=== PATIENT | female | born 1985 | race Caucasian/White ===

== ENCOUNTER 2016-12-16 21:01 | Emergency (ER) | payer OTHER ==
--- NOTE | 2016-12-16 23:34 | DIAGNOSTIC IMAGING REPORT ---
PROCEDURE: XR CHEST 2 VIEW INDICATION: CHEST PAIN TECHNIQUE: PA and lateral views. COMPARISON: None. FINDINGS: Allowing for suboptimal inspiration, lungs are clear. Heart and mediastinum are normal. Thorax is normal. IMPRESSION: 1. Negative chest.
--- NOTE | 2016-12-17 00:48 | ED CLINICAL REPORT ---
Clinical Report - Physicians/Mid Levels [facility] [address] [place] [place] [address] 12/16/2016 21:02 Patient: SID SAPP Time Seen: 22:30 Dec 16 2016. Arrived- By private vehicle. Historian- patient. CPT: ER phys charges level 4 (#[id number]). HISTORY OF PRESENT ILLNESS Chief Complaint: ABDOMINAL PAIN. At its maximum, severity described as 9 / 10. When seen in the E.D., severity described as 9 / 10. Modifying factors. Not worsened by anything. Not relieved by anything. It is described as "pain" and cramping and it is described as located in the epigastric area and radiating to the upper back. This started today patient had acute onset of epigastric pain 30-60 minutes after eating sol[place] islander fries today. This came on at 1500. Has a history of severe reflux as well. Is on daily medication for reflux. Has never had pain like this before. Her pain is epigastric and radiates to the right upper back area. Pain is crampy and a 9 out of 10. Been no fever nausea vomiting diarrhea constipation or prior abdominal surgeries. Patient is diabetic. No nausea, loss of appetite, vomiting or diarrhea. Similar symptoms previously: Milder. Diagnosis: (reflux). Recent medical care: Not recently seen/assessed. REVIEW OF SYSTEMS No constipation, black stools, hematemesis, difficulty with urination or pain with urination. No urinary frequency, fever, sore throat, chest pain or difficulty breathing. No cough, joint pain, skin rash or chills. Denies current . The patient has had back pain. All systems otherwise negative, except as recorded above. PAST HISTORY Hypertension. Diabetes Mellitus. - ADDITIONAL SURGERIES: Adenoidectomy. Tonsillectomy. Uvela. No history of peptic ulcer. No history of gallstones. Has not had urinary calculi. Severe gastroesophageal reflux. Medications: Januvia Oral. Lisinopril Oral. Omeprazole Oral. MetFORMIN HCl Oral. Allergies: None. SOCIAL HISTORY Heavy tobacco smoker (cigarette)- less than 1 pack per day. Alcohol use. No drug use. ADDITIONAL NOTES The nursing notes have been reviewed. PHYSICAL EXAM Vital Signs: 12/16/2016 21:18 BP: 180/107. HR: 83. O2 saturation: 97%. Temp: 97.8 F. Pain level now: 03/10. Appearance: Alert. Anxious. Appears to be in pain. Patient in moderate distress. Eyes: Eyes normal inspection. ENT: Pharynx normal. Neck: Normal inspection. CVS: Normal heart rate and rhythm. Heart sounds normal. Pulses normal. Respiratory: No respiratory distress. Breath sounds normal. Chest nontender. Abdomen: Soft. Moderate tenderness in the epigastric area with guarding present. No tenderness in the right upper quadrant. Abnormal bowel sounds: diminished. No mass. Obese. Back: Normal inspection. Skin: Skin warm. Normal skin color. No rash. Extremities: Extremities exhibit normal ROM. No lower extremity edema. Neuro: Oriented X 3. No motor deficit. No sensory deficit. LABS, X-RAYS, AND EKG EKG: Normal EKG. Chest X-ray: Normal Chest X-Ray. Abdominal Sonogram: Multiple gallstones are present. No gallbladder wall thickening, pericholecystic fluid, dilated common duct or common duct stones. The study was independently viewed by me and interpreted contemporaneously by me. Laboratory Tests: UA-Culture if indicated: (ERROL: 12/16/2016 21:40) ( MsgRcvd 12/16/2016 22:01) Final results Test Result Flag Units (Reference) URINE COLOR YELLOW URINE APPEARANCE SLIGHTLY HAZY URINE GLUCOSE NEGATIVE (NEGATIVE) URINE BILIRUBIN NEGATIVE (NEGATIVE) URINE KETONE NEGATIVE (NEGATIVE) URINE SPECIFIC GRAVITY 1.020 (1.010-1.030) URINE PH 7.0 (5.0-8.0) URINE PROTEIN NEGATIVE (NEGATIVE) URINE UROBILINOGEN 0.2 EU/dL (0.2-1.0) URINE NITRITE NEGATIVE (NEGATIVE) URINE BLOOD NEGATIVE (NEGATIVE) URINE LEUK ESTERASE NEGATIVE (NEGATIVE) URINE RBC 0-1 rbc/hpf (0-1) URINE WBC 0-1 wbc/hpf (0-1) URINE EPITHELIAL CELLS 3-5 EPI/hpf (0-5) URINE BACTERIA NONE SEEN (NONE SEEN) URINE COMMENT CULT NOT INDICATED 2+ AMORPHOUSURINE CULTURES ARE SET-UP BASED ON THE FOLLOWING CRITERIA:POSITIVE NITRITEPOSITIVE LEUKOCYTE ESTERASEGREATER THAN 10 WHITE BLOOD CELLSMODERATE (2+) OR GREATER BACTERIA Urine: (ERROL: 12/16/2016 21:40) ( [facility] 12/16/2016 21:52) Final results Test Result Flag Units (Reference) URINE NEGATIVE ESR: (ERROL: 12/16/2016 21:40) ( [facility] 12/16/2016 23:24) Final results Test Result Flag Units (Reference) SED RATE WESTERGREN 6 mm/hr (0-20) CBC w Diff: (ERROL: 12/16/2016 21:40) ( [facility] 12/16/2016 22:05) Final results Test Result Flag Units (Reference) WHITE BLOOD COUNT 12.0 H K/uL (4.5-11.5) RED BLOOD COUNT 5.19 M/uL (4.00-5.20) HEMOGLOBIN 13.9 gm/dL (12.0-16.0) HEMATOCRIT 43.4 % (36.0-46.0) MEAN CELL VOLUME 84 fL (80-100) MEAN CORPUSCULAR HGB 27 pg (26-34) MEAN CORPUSCULAR HGB CONC 32 g/dL (31-37) RED CELL DISTRIBUTION WIDTH 14.9 H % (11.6-14.8) PLATELET COUNT 254 K/uL (150-400) LYMPH % 20.5 L % (25-40) MONO % 5.3 % (3-14) GRANULOCYTE % 74.2 (53-90) [id number]: (ERROL: 12/16/2016 21:40) ( [facility] 12/16/2016 22:58) Final results Test Result Flag Units (Reference) D-DIMER QUANTITATIVE < 0.27 L ug/mLFEU (0.27-0.52) The primary value of this quantitative assay relates toits negative predictive value (i.e. exclusion) of pulmonaryembolism/deep vein thrombosis/DIC.Elevated levels of d-dimer may also occur with:, age, cancer, inflammation, liver disease,post-op, infection, hematoma, coronary disease, peripheralarteriopathy, bleeding disorders and thrombolytic treatment.Results should be correlated with other clinical andradiological data.Testing Methodology: Latex Immunoassay PT with INR: (ERROL: 12/16/2016 21:40) ( [facility] 12/16/2016 22:03) Final results Test Result Flag Units (Reference) INR 0.9 (0.8-1.2) Low Intensity Therapy: INR 1.5-2.0 PT range 18.5-23.1Mod.Intensity Therapy: INR 2.0-3.0 PT range 23.1-31.5High Intensity Therapy: INR 2.5-3.5 PT range 27.4-35.5High Intensity Therapy 2: INR 3.0-4.0 PT range 31.5-39.3 [id number]: (ERROL: 12/16/2016 21:40) ( [facility] 12/16/2016 22:57) Final results Test Result Flag Units (Reference) C-REACTIVE PROTEIN 0.8 mg/dL (0.0-0.9) [id number]: (ERROL: 12/16/2016 21:40) ( [facility] 12/16/2016 23:23) Final results Test Result Flag Units (Reference) PROCALCITONIN <0.5 ng/mL (0-0.5) PCT Concentration: Interpretation : Risk/option for action PCT <=0.5 ng/mL : Systemic : Low risk forinfection(sepsis): progression to severeis not likely. : systemic infection.Local bacterial : CAUTION-PCT levelsinfection is : below 0.5 ng/mL do notpossible. : exclude an infection,because localizedinfections (withoutsystemic signs) may beassociated with suchlow levels. If PCT ismeasured very earlyafter a bacterialchallenge (usually <6hours), these valuesmay still be low. Inthis case PCT shouldbe re-assessed 6-24hours later. PCT >0.5 and : Systemic infection: Moderate risk for<= 2 ng/mL : (sepsis) is : progression to severepossible, but : systemic infection.other conditions : The patient should beare known to : closely monitoredelevate PCT. : both clinically andby re-assessing PCTwithin 6-24 hours. PCT > 2 ng/mL : Systemic infection: High risk for(sepsis) is likely: progression to severeunless other : systemic infection.causes are known. : PCT >= 10 ng/mL : Important systemic: High likelihood ofinflammatory : severe sepsis orresponse, almost : septic shock.exclusively due to:severe bacterial :sepsis or septic :shock. : CMP: (ERROL: 12/16/2016 21:40) ( MsgRcvd 12/16/2016 22:13) Final results Test Result Flag Units (Reference) GLUCOSE 182 H mg/dL (70-110) BUN 14 mg/dL (7-18) CREATININE 0.9 mg/dL (0.6-1.3) Estimated GFR >60 mL/min Estimated GFR- >60 mL/min Note: Persistent reduction over 3 months in eGFR<60 mL/min/1.73 m2 defines CKD. Patients with eGFR values>=60 mL/min/1.73 m2 may also have CKD if evidence ofpersistent proteinuria. Additional information may be foundat www.[email or web address].org. SODIUM 142 mmol/L (136-145) POTASSIUM 3.7 mmol/L (3.5-5.1) CHLORIDE 107 mmol/L (98-107) CARBON DIOXIDE 28 mmol/L (21-32) CALCIUM 9.2 mg/dL (8.5-10.1) TOTAL PROTEIN 7.3 g/dL (6.4-8.2) ALBUMIN 3.7 g/dL (3.3-5.0) BILIRUBIN, TOTAL 0.2 mg/dL (0.0-1.0) ALKALINE PHOSPHATASE 56 U/L (46-116) AST (SGOT) 12 L U/L (15-37) ALT (SGPT) 29 U/L (12-78) LIPASE 126 U/L (73-393) AMYLASE 39 U/L (25-115) . PROGRESS AND PROCEDURES Course of Care: IV NS Demerol 25 mg then 12.5 mg IV Zofran 4 mg IV White GI cocktail and is significantly better with pain level at a 2/10. Carafate 20 ml po Protonix 40 mg po Patient is stable. Symptoms much better. Discussed gallstones and that it does not appear at this time that this is the source of pain but still needs to be considered if symptoms persist despite the GI medications. Patient/family counseled. Disposition: Discharged. Condition: stable. CLINICAL IMPRESSION Gastroesophageal reflux disease with esophagitis. Gallstones. INSTRUCTIONS Take clear liquids only (frequent sips) for the next 6 hours until better. Advance diet as tolerated. Avoid alcohol and NSAIDS. Examples of NSAIDS include aspirin, ibuprofen (Advil) and naproxen (Aleve). Avoid fatty, fried/greasy and spicy foods. Warnings: Further evaluation is necessary. SEDATIVE MEDICATION: You were given sedative medication during your visit. Do not drive or operate dangerous machinery. GENERAL WARNINGS: Return or contact your physician immediately if your condition worsens or changes unexpectedly, if not improving as expected, or if other problems arise. Your Current Medications: CONTINUE TAKING THE FOLLOWING MEDICATIONS: Juluvia Oral. Lisinopril Oral. MetFORMIN HCl Oral. Omeprazole Oral. Prescription Medications: Zofran (orally disintegrating tablets) 4 mg: take 1 orally every 4 hours as needed for nausea. Dispense ten (10). No refill. Carafate 1 gm tablets: take 1 orally four times daily (1 hour before meals and at bedtime). Dispense sixty (60). No refills. Substitution is permissible. Prilosec 40 mg capsules: take 1 capsule orally every day for 10 days. Dispense ten (10). No refill. Substitution is permissible. Percocet 5 mg/325 mg: take 1-2 tablets orally every 4 hours as needed for pain. Dispense twelve (12). No refill. Substitution is permissible. Follow-up: Follow up with your doctor in two days. Call for an appointment. Understanding of the discharge instructions verbalized by patient. (Electronically signed by Samson James MD 12/17/2016 21:52)
--- NOTE | 2016-12-17 00:48 | ED NURSING NOTES ---
Clinical Report - Nurses [facility] [address] [place] [address] 12/16/2016 21:02 Patient: SID SAPP TRIAGE Triage time 21:Dec 16 2016. Acuity: LEVEL 3. Chief Complaint: ABDOMINAL PAIN. Alert. No acute distress. GABRIELE COMA SCORE: [place] Coma Scale: 15- eyes open spontaneously (4); best verbal response- oriented x 4 (5); best motor response- obeys commands (6). --21:23 Francy Dillon R.N. 21:18 12/16/16. BP: 180/107. HR: 83. O2 saturation: 97%. Temp: 97.8 F. Pain level now: 03/10. --21:23 Francy Dillon R.N. Weight: 150.5 kg stated. Height/Length: 67 inches Per Patient. BMI: 52. --21:20 Francy Dillon R.N. Medications MetFORMIN HCl Oral. --21:19 Francy Dillon R.N. Omeprazole Oral. --21:19 Francy Dillon R.N. Lisinopril Oral. --21:19 Francy Dillon R.N. Januvia Oral. --21:19 Francy Dillon R.N. Allergies None. --21:19 Francy Dillon R.N. History Arrived by private vehicle. Historian: patient. Accompanied by family. This started today. No nausea or vomiting. 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 PAST MEDICAL HX: Immunizations: up-to-date. Last normal menstrual period- about 3 months ago. Uses an intrauterine device. Denies current . SOCIAL HX: Current every day heavy tobacco smoker (cigarette)- less than 1 pack per day. Occasional alcohol use. No drug use. No recent travel. No infectious disease exposure. No known contact with a sick individual. SELF HARM ASSESSMENT: A self harm assessment was performed. The patient answered "no" to the question "Do you have thoughts of harming or killing yourself?". FALL RISK ASSESSMENT: Fall risk assessment completed. No fall risk identified. NUTRITIONAL RISK ASSESSMENT: The nutritional risk assessment revealed no deficiencies. FUNCTIONAL ASSESSMENT: Functional assessment: no impairments noted. LEARNING NEEDS ASSESSMENT: The learning needs assessment revealed no barriers. ABUSE ASSESSMENT: Abuse assessment: The patient was asked "Do you feel safe in your home?". SKIN INTEGRITY ASSESSMENT: Skin integrity risk assessment completed. No skin integrity risk identified. --21:23 Francy Dillon R.N. PROBLEMS: Hypertension. Diabetes Mellitus. --21:21 Francy Dillon R.N. ADDITIONAL SURGERIES: Adenoidectomy. Tonsillectomy. Uvela. --21:21 Francy Dillon R.N. Interventions ID band on patient. To room. --21:23 Francy Dillon R.N. PHYSICAL ASSESSMENT Ambulatory to room. GENERAL / NEURO / PSYCH: Alert. Oriented X 4. Appears in pain. RESPIRATORY: Respirations not labored. CVS: Capillary refill less than 2 seconds. GI / : Abdomen nontender. Abdominal tenderness in the upper abdomen. SKIN: Skin is warm and dry. --21:23 Francy Dillon R.N. NURSING PROGRESS NOTES 21:24 12/16/2016 Site #1 started via IV in the left hand with an 22g angiocath, with aseptic technique and good blood return; one attempt. Blood drawn: rainbow set. Labeled in the presence of the patient and sent to the lab. Saline lock flushed with 10 mL saline. --21:24 Francy Dillon R.N. Patient gowned. Head of bed elevated. Patient identifiers checked. Call light placed in reach. Side rails up. Bed placed in lowest position. Brakes of bed on. --21:24 Francy Dillon R.N. Glucose: 182. --21:57 Francy Dillon R.N. 22:53 12/16/2016 GI COCKTAIL WHITE (Simethicone) PO Oral Suspension. Allergies verified and confirmed 5 rights. --22:53 Francy Dillon R.N. 22:53 12/16/2016 Zofran (Ondansetron HCl) IVP 4 mg given over 2 minute(s) via site #1. Allergies verified and confirmed 5 rights. IV patency established. IV site checked: no pain, redness, or swelling. IV flushed thoroughly pre- and post-medication administration. IVP given by RN. --22:53 Francy Dillon R.N. 22:54 12/16/2016 Demerol (Meperidine HCl) IVP 25 mg given over 2 minute(s) via site #1. Allergies verified and confirmed 5 rights. IV patency established. IV site checked: no pain, redness, or swelling. IV flushed thoroughly pre- and post-medication administration. IVP given by RN. --22:54 Francy Dillon R.N. The patient is calm and resting quietly. Overall patient status is the same- she states feels better. GI / : Abdomen soft. SKIN: Skin is warm and dry. --23:32 Francy Dillon R.N. 23:31 12/16/16. BP: 136/78. HR: 66. RR: 21. O2 saturation: 94%. Pain level now: 08/10. --23:32 Francy Dillon R.N. EKG time: (23:47). EKG was performed by a tech and shown to the ED physician. --23:50 Kerri Schafer 00:54 12/17/2016 Demerol (Meperidine HCl) IVP 12.5 mg given over 1 minute(s) via site #1. Allergies verified and confirmed 5 rights. IV patency established. IV site checked: no pain, redness, or swelling. IV flushed thoroughly pre- and post-medication administration. IVP given by RN. --00:59 Ne Marin 00:54 12/17/2016 Carafate (Sucralfate) PO Oral Suspension 2 gm given. Allergies verified and confirmed 5 rights. --00:59 Ne Marin 00:54 12/17/2016 Protonix (Pantoprazole Sodium) PO Tablets 40 mg given. Allergies verified and confirmed 5 rights. --00:59 eN Marin. DISPOSITION / DISCHARGE Departure time: 01:Dec 17 2016. Condition at departure: improved. No learning barriers present. Discharge instructions provided and reviewed with the patient and spouse. Reviewed warnings. Reviewed medication(s). Treatments reviewed. Reviewed referrals. Patient and spouse verbalized understanding. Written instructions provided in [place]. The patient was discharged home and accompanied by spouse. She left the Emergency Department ambulatory and via private vehicle. Spouse driving. --01:01 Bentley Francisco R.N. 01:00 12/17/16. BP: 131/64. HR: 86. RR: 18. O2 saturation: 98%. Temp: 98.6 F. Pain level now 10/08. --01:01 Bentley Francisco R.N. 00:51 12/17/2016 Site #1 removed upon discharge. Catheter intact. Pressure dressing applied. --01:01 Bentley Francisco R.N. Locked/Released at 12/17/2016 1:02 by Bentley Francisco R.N.
--- NOTE | 2016-12-17 00:48 | ED NURSING NOTES ---
Clinical Report - Nurses [facility] [address] [place] [address] 12/16/2016 21:02 Patient: SID SAPP TRIAGE Triage time 21:Dec 16 2016. Acuity: LEVEL 3. Chief Complaint: ABDOMINAL PAIN. Alert. No acute distress. GABRIELE COMA SCORE: [place] Coma Scale: 15- eyes open spontaneously (4); best verbal response- oriented x 4 (5); best motor response- obeys commands (6). --21:23 Francy Dillon R.N. 21:18 12/16/16. BP: 180/107. HR: 83. O2 saturation: 97%. Temp: 97.8 F. Pain level now: 03/10. --21:23 Francy Dillon R.N. Weight: 150.5 kg stated. Height/Length: 67 inches Per Patient. BMI: 52. --21:20 Francy Dillon R.N. Medications MetFORMIN HCl Oral. --21:19 Francy Dillon R.N. Omeprazole Oral. --21:19 Francy Dillon R.N. Lisinopril Oral. --21:19 Francy Dillon R.N. Januvia Oral. --21:19 Francy Dillon R.N. Allergies None. --21:19 Francy Dillon R.N. History Arrived by private vehicle. Historian: patient. Accompanied by family. This started today. No nausea or vomiting. 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 PAST MEDICAL HX: Immunizations: up-to-date. Last normal menstrual period- about 3 months ago. Uses an intrauterine device. Denies current . SOCIAL HX: Current every day heavy tobacco smoker (cigarette)- less than 1 pack per day. Occasional alcohol use. No drug use. No recent travel. No infectious disease exposure. No known contact with a sick individual. SELF HARM ASSESSMENT: A self harm assessment was performed. The patient answered "no" to the question "Do you have thoughts of harming or killing yourself?". FALL RISK ASSESSMENT: Fall risk assessment completed. No fall risk identified. NUTRITIONAL RISK ASSESSMENT: The nutritional risk assessment revealed no deficiencies. FUNCTIONAL ASSESSMENT: Functional assessment: no impairments noted. LEARNING NEEDS ASSESSMENT: The learning needs assessment revealed no barriers. ABUSE ASSESSMENT: Abuse assessment: The patient was asked "Do you feel safe in your home?". SKIN INTEGRITY ASSESSMENT: Skin integrity risk assessment completed. No skin integrity risk identified. --21:23 Francy Dillon R.N. PROBLEMS: Hypertension. Diabetes Mellitus. --21:21 Francy Dillon R.N. ADDITIONAL SURGERIES: Adenoidectomy. Tonsillectomy. Uvela. --21:21 Francy Dillon R.N. Interventions ID band on patient. To room. --21:23 Francy Dillon R.N. PHYSICAL ASSESSMENT Ambulatory to room. GENERAL / NEURO / PSYCH: Alert. Oriented X 4. Appears in pain. RESPIRATORY: Respirations not labored. CVS: Capillary refill less than 2 seconds. GI / : Abdomen nontender. Abdominal tenderness in the upper abdomen. SKIN: Skin is warm and dry. --21:23 Francy Dillon R.N. NURSING PROGRESS NOTES 21:24 12/16/2016 Site #1 started via IV in the left hand with an 22g angiocath, with aseptic technique and good blood return; one attempt. Blood drawn: rainbow set. Labeled in the presence of the patient and sent to the lab. Saline lock flushed with 10 mL saline. --21:24 Francy Dillon R.N. Patient gowned. Head of bed elevated. Patient identifiers checked. Call light placed in reach. Side rails up. Bed placed in lowest position. Brakes of bed on. --21:24 Francy Dillon R.N. Glucose: 182. --21:57 Francy Dillon R.N. 22:53 12/16/2016 GI COCKTAIL WHITE (Simethicone) PO Oral Suspension. Allergies verified and confirmed 5 rights. --22:53 Francy Dillon R.N. 22:53 12/16/2016 Zofran (Ondansetron HCl) IVP 4 mg given over 2 minute(s) via site #1. Allergies verified and confirmed 5 rights. IV patency established. IV site checked: no pain, redness, or swelling. IV flushed thoroughly pre- and post-medication administration. IVP given by RN. --22:53 Francy Dillon R.N. 22:54 12/16/2016 Demerol (Meperidine HCl) IVP 25 mg given over 2 minute(s) via site #1. Allergies verified and confirmed 5 rights. IV patency established. IV site checked: no pain, redness, or swelling. IV flushed thoroughly pre- and post-medication administration. IVP given by RN. --22:54 Francy Dillon R.N. The patient is calm and resting quietly. Overall patient status is the same- she states feels better. GI / : Abdomen soft. SKIN: Skin is warm and dry. --23:32 Francy Dillon R.N. 23:31 12/16/16. BP: 136/78. HR: 66. RR: 21. O2 saturation: 94%. Pain level now: 08/10. --23:32 Francy Dillon R.N. EKG time: (23:47). EKG was performed by a tech and shown to the ED physician. --23:50 Kerri Schafer 00:54 12/17/2016 Demerol (Meperidine HCl) IVP 12.5 mg given over 1 minute(s) via site #1. Allergies verified and confirmed 5 rights. IV patency established. IV site checked: no pain, redness, or swelling. IV flushed thoroughly pre- and post-medication administration. IVP given by RN. --00:59 Ne Marin 00:54 12/17/2016 Carafate (Sucralfate) PO Oral Suspension 2 gm given. Allergies verified and confirmed 5 rights. --00:59 Ne Marin 00:54 12/17/2016 Protonix (Pantoprazole Sodium) PO Tablets 40 mg given. Allergies verified and confirmed 5 rights. --00:59 Ne Marin. DISPOSITION / DISCHARGE Departure time: 01:Dec 17 2016. Condition at departure: improved. No learning barriers present. Discharge instructions provided and reviewed with the patient and spouse. Reviewed warnings. Reviewed medication(s). Treatments reviewed. Reviewed referrals. Patient and spouse verbalized understanding. Written instructions provided in [place]. The patient was discharged home and accompanied by spouse. She left the Emergency Department ambulatory and via private vehicle. Spouse driving. --01:01 Bentley Francisco R.N. 01:00 12/17/16. BP: 131/64. HR: 86. RR: 18. O2 saturation: 98%. Temp: 98.6 F. Pain level now 10/08. --01:01 Bentley Francisco R.N. 00:51 12/17/2016 Site #1 removed upon discharge. Catheter intact. Pressure dressing applied. --01:01 Bentley Francisco R.N. Locked/Released at 12/17/2016 1:02 by Bentley Francisco R.N.
--- NOTE | 2016-12-17 00:48 | ED CLINICAL REPORT ---
Clinical Report - Physicians/Mid Levels [facility] [address] [place] [place] [address] 12/16/2016 21:02 Patient: SID SAPP Time Seen: 22:30 Dec 16 2016. Arrived- By private vehicle. Historian- patient. CPT: ER phys charges level 4 (#[id number]). HISTORY OF PRESENT ILLNESS Chief Complaint: ABDOMINAL PAIN. At its maximum, severity described as 9 / 10. When seen in the E.D., severity described as 9 / 10. Modifying factors. Not worsened by anything. Not relieved by anything. It is described as "pain" and cramping and it is described as located in the epigastric area and radiating to the upper back. This started today patient had acute onset of epigastric pain 30-60 minutes after eating nicaraguan fries today. This came on at 1500. Has a history of severe reflux as well. Is on daily medication for reflux. Has never had pain like this before. Her pain is epigastric and radiates to the right upper back area. Pain is crampy and a 9 out of 10. Been no fever nausea vomiting diarrhea constipation or prior abdominal surgeries. Patient is diabetic. No nausea, loss of appetite, vomiting or diarrhea. Similar symptoms previously: Milder. Diagnosis: (reflux). Recent medical care: Not recently seen/assessed. REVIEW OF SYSTEMS No constipation, black stools, hematemesis, difficulty with urination or pain with urination. No urinary frequency, fever, sore throat, chest pain or difficulty breathing. No cough, joint pain, skin rash or chills. Denies current . The patient has had back pain. All systems otherwise negative, except as recorded above. PAST HISTORY Hypertension. Diabetes Mellitus. - ADDITIONAL SURGERIES: Adenoidectomy. Tonsillectomy. Uvela. No history of peptic ulcer. No history of gallstones. Has not had urinary calculi. Severe gastroesophageal reflux. Medications: Januvia Oral. Lisinopril Oral. Omeprazole Oral. MetFORMIN HCl Oral. Allergies: None. SOCIAL HISTORY Heavy tobacco smoker (cigarette)- less than 1 pack per day. Alcohol use. No drug use. ADDITIONAL NOTES The nursing notes have been reviewed. PHYSICAL EXAM Vital Signs: 12/16/2016 21:18 BP: 180/107. HR: 83. O2 saturation: 97%. Temp: 97.8 F. Pain level now: 03/10. Appearance: Alert. Anxious. Appears to be in pain. Patient in moderate distress. Eyes: Eyes normal inspection. ENT: Pharynx normal. Neck: Normal inspection. CVS: Normal heart rate and rhythm. Heart sounds normal. Pulses normal. Respiratory: No respiratory distress. Breath sounds normal. Chest nontender. Abdomen: Soft. Moderate tenderness in the epigastric area with guarding present. No tenderness in the right upper quadrant. Abnormal bowel sounds: diminished. No mass. Obese. Back: Normal inspection. Skin: Skin warm. Normal skin color. No rash. Extremities: Extremities exhibit normal ROM. No lower extremity edema. Neuro: Oriented X 3. No motor deficit. No sensory deficit. LABS, X-RAYS, AND EKG EKG: Normal EKG. Chest X-ray: Normal Chest X-Ray. Abdominal Sonogram: Multiple gallstones are present. No gallbladder wall thickening, pericholecystic fluid, dilated common duct or common duct stones. The study was independently viewed by me and interpreted contemporaneously by me. Laboratory Tests: UA-Culture if indicated: (ERROL: 12/16/2016 21:40) ( MsgRcvd 12/16/2016 22:01) Final results Test Result Flag Units (Reference) URINE COLOR YELLOW URINE APPEARANCE SLIGHTLY HAZY URINE GLUCOSE NEGATIVE (NEGATIVE) URINE BILIRUBIN NEGATIVE (NEGATIVE) URINE KETONE NEGATIVE (NEGATIVE) URINE SPECIFIC GRAVITY 1.020 (1.010-1.030) URINE PH 7.0 (5.0-8.0) URINE PROTEIN NEGATIVE (NEGATIVE) URINE UROBILINOGEN 0.2 EU/dL (0.2-1.0) URINE NITRITE NEGATIVE (NEGATIVE) URINE BLOOD NEGATIVE (NEGATIVE) URINE LEUK ESTERASE NEGATIVE (NEGATIVE) URINE RBC 0-1 rbc/hpf (0-1) URINE WBC 0-1 wbc/hpf (0-1) URINE EPITHELIAL CELLS 3-5 EPI/hpf (0-5) URINE BACTERIA NONE SEEN (NONE SEEN) URINE COMMENT CULT NOT INDICATED 2+ AMORPHOUSURINE CULTURES ARE SET-UP BASED ON THE FOLLOWING CRITERIA:POSITIVE NITRITEPOSITIVE LEUKOCYTE ESTERASEGREATER THAN 10 WHITE BLOOD CELLSMODERATE (2+) OR GREATER BACTERIA Urine: (ERROL: 12/16/2016 21:40) ( [facility] 12/16/2016 21:52) Final results Test Result Flag Units (Reference) URINE NEGATIVE ESR: (ERROL: 12/16/2016 21:40) ( [facility] 12/16/2016 23:24) Final results Test Result Flag Units (Reference) SED RATE WESTERGREN 6 mm/hr (0-20) CBC w Diff: (ERROL: 12/16/2016 21:40) ( [facility] 12/16/2016 22:05) Final results Test Result Flag Units (Reference) WHITE BLOOD COUNT 12.0 H K/uL (4.5-11.5) RED BLOOD COUNT 5.19 M/uL (4.00-5.20) HEMOGLOBIN 13.9 gm/dL (12.0-16.0) HEMATOCRIT 43.4 % (36.0-46.0) MEAN CELL VOLUME 84 fL (80-100) MEAN CORPUSCULAR HGB 27 pg (26-34) MEAN CORPUSCULAR HGB CONC 32 g/dL (31-37) RED CELL DISTRIBUTION WIDTH 14.9 H % (11.6-14.8) PLATELET COUNT 254 K/uL (150-400) LYMPH % 20.5 L % (25-40) MONO % 5.3 % (3-14) GRANULOCYTE % 74.2 (53-90) [id number]: (ERROL: 12/16/2016 21:40) ( [facility] 12/16/2016 22:58) Final results Test Result Flag Units (Reference) D-DIMER QUANTITATIVE < 0.27 L ug/mLFEU (0.27-0.52) The primary value of this quantitative assay relates toits negative predictive value (i.e. exclusion) of pulmonaryembolism/deep vein thrombosis/DIC.Elevated levels of d-dimer may also occur with:, age, cancer, inflammation, liver disease,post-op, infection, hematoma, coronary disease, peripheralarteriopathy, bleeding disorders and thrombolytic treatment.Results should be correlated with other clinical andradiological data.Testing Methodology: Latex Immunoassay PT with INR: (ERROL: 12/16/2016 21:40) ( [facility] 12/16/2016 22:03) Final results Test Result Flag Units (Reference) INR 0.9 (0.8-1.2) Low Intensity Therapy: INR 1.5-2.0 PT range 18.5-23.1Mod.Intensity Therapy: INR 2.0-3.0 PT range 23.1-31.5High Intensity Therapy: INR 2.5-3.5 PT range 27.4-35.5High Intensity Therapy 2: INR 3.0-4.0 PT range 31.5-39.3 [id number]: (ERROL: 12/16/2016 21:40) ( [facility] 12/16/2016 22:57) Final results Test Result Flag Units (Reference) C-REACTIVE PROTEIN 0.8 mg/dL (0.0-0.9) [id number]: (ERROL: 12/16/2016 21:40) ( [facility] 12/16/2016 23:23) Final results Test Result Flag Units (Reference) PROCALCITONIN <0.5 ng/mL (0-0.5) PCT Concentration: Interpretation : Risk/option for action PCT <=0.5 ng/mL : Systemic : Low risk forinfection(sepsis): progression to severeis not likely. : systemic infection.Local bacterial : CAUTION-PCT levelsinfection is : below 0.5 ng/mL do notpossible. : exclude an infection,because localizedinfections (withoutsystemic signs) may beassociated with suchlow levels. If PCT ismeasured very earlyafter a bacterialchallenge (usually <6hours), these valuesmay still be low. Inthis case PCT shouldbe re-assessed 6-24hours later. PCT >0.5 and : Systemic infection: Moderate risk for<= 2 ng/mL : (sepsis) is : progression to severepossible, but : systemic infection.other conditions : The patient should beare known to : closely monitoredelevate PCT. : both clinically andby re-assessing PCTwithin 6-24 hours. PCT > 2 ng/mL : Systemic infection: High risk for(sepsis) is likely: progression to severeunless other : systemic infection.causes are known. : PCT >= 10 ng/mL : Important systemic: High likelihood ofinflammatory : severe sepsis orresponse, almost : septic shock.exclusively due to:severe bacterial :sepsis or septic :shock. : CMP: (ERROL: 12/16/2016 21:40) ( MsgRcvd 12/16/2016 22:13) Final results Test Result Flag Units (Reference) GLUCOSE 182 H mg/dL (70-110) BUN 14 mg/dL (7-18) CREATININE 0.9 mg/dL (0.6-1.3) Estimated GFR >60 mL/min Estimated GFR- >60 mL/min Note: Persistent reduction over 3 months in eGFR<60 mL/min/1.73 m2 defines CKD. Patients with eGFR values>=60 mL/min/1.73 m2 may also have CKD if evidence ofpersistent proteinuria. Additional information may be foundat www.kidney.org. SODIUM 142 mmol/L (136-145) POTASSIUM 3.7 mmol/L (3.5-5.1) CHLORIDE 107 mmol/L (98-107) CARBON DIOXIDE 28 mmol/L (21-32) CALCIUM 9.2 mg/dL (8.5-10.1) TOTAL PROTEIN 7.3 g/dL (6.4-8.2) ALBUMIN 3.7 g/dL (3.3-5.0) BILIRUBIN, TOTAL 0.2 mg/dL (0.0-1.0) ALKALINE PHOSPHATASE 56 U/L (46-116) AST (SGOT) 12 L U/L (15-37) ALT (SGPT) 29 U/L (12-78) LIPASE 126 U/L (73-393) AMYLASE 39 U/L (25-115) . PROGRESS AND PROCEDURES Course of Care: IV NS Demerol 25 mg then 12.5 mg IV Zofran 4 mg IV White GI cocktail and is significantly better with pain level at a 2/10. Carafate 20 ml po Protonix 40 mg po Patient is stable. Symptoms much better. Discussed gallstones and that it does not appear at this time that this is the source of pain but still needs to be considered if symptoms persist despite the GI medications. Patient/family counseled. Disposition: Discharged. Condition: stable. CLINICAL IMPRESSION Gastroesophageal reflux disease with esophagitis. Gallstones. INSTRUCTIONS Take clear liquids only (frequent sips) for the next 6 hours until better. Advance diet as tolerated. Avoid alcohol and NSAIDS. Examples of NSAIDS include aspirin, ibuprofen (Advil) and naproxen (Aleve). Avoid fatty, fried/greasy and spicy foods. Warnings: Further evaluation is necessary. SEDATIVE MEDICATION: You were given sedative medication during your visit. Do not drive or operate dangerous machinery. GENERAL WARNINGS: Return or contact your physician immediately if your condition worsens or changes unexpectedly, if not improving as expected, or if other problems arise. Your Current Medications: CONTINUE TAKING THE FOLLOWING MEDICATIONS: Juluvia Oral. Lisinopril Oral. MetFORMIN HCl Oral. Omeprazole Oral. Prescription Medications: Zofran (orally disintegrating tablets) 4 mg: take 1 orally every 4 hours as needed for nausea. Dispense ten (10). No refill. Carafate 1 gm tablets: take 1 orally four times daily (1 hour before meals and at bedtime). Dispense sixty (60). No refills. Substitution is permissible. Prilosec 40 mg capsules: take 1 capsule orally every day for 10 days. Dispense ten (10). No refill. Substitution is permissible. Percocet 5 mg/325 mg: take 1-2 tablets orally every 4 hours as needed for pain. Dispense twelve (12). No refill. Substitution is permissible. Follow-up: Follow up with your doctor in two days. Call for an appointment. Understanding of the discharge instructions verbalized by patient. (Electronically signed by Samson James MD 12/17/2016 21:52)
--- NOTE | 2016-12-17 00:49 | ED ORDER SUMMARY ---
..... Patient: SID SAPP OrderSheet [facility] VisitID: [id number] [place] [address] 31y, F Registration Date/Time: 12/16/2016 ORDER SHEET Weight: 150.5 kg (stated) Allergies: None GENERAL ORDERS: CBC w Diff Urgent (21:12/16/2016 KKnebel R.N. verbal order read back to Wei PUENTE) (Ack 21:32 AMcQuoid ER Tech1) (21:41 AMcQuoid ER Tech1) CMP Urgent (:12/16/2016 KKnebel R.N. verbal order read back to Wei PUENTE) (Ack 21:32 AMcQuoid ER Tech1) (21:41 AMcQuoid ER Tech1) UA-Culture if indicated Urgent (:12/16/2016 KKnebel R.N. verbal order read back to Wei PUENTE) (Ack 21:32 AMcQuoid ER Tech1) (21:41 AMcQuoid ER Tech1) PT with INR Urgent (21:12/16/2016 KKnebel R.N. verbal order read back to Wei PUENTE) (Ack 21:32 AMcQuoid ER Tech1) (21:41 AMcQuoid ER Tech1) Lipase Urgent (21:12/16/2016 KKnebel R.N. verbal order read back to Wei PUENTE) (Ack 21:32 AMcQuoid ER Tech1) (21:41 AMcQuoid ER Tech1) Amylase Urgent (21:12/16/2016 KKnebel R.N. verbal order read back to Wei PUENTE) (Ack 21:32 AMcQuoid ER Tech1) (21:41 AMcQuoid ER Tech1) Urine Urgent (:12/16/2016 KKnebel R.N. verbal order read back to Wei PUENTE) (Ack 21:32 AMcQuoid ER Tech1) (21:41 AMcQuoid ER Tech1) POC Glucose (21:12/16/2016 KKnebel R.N. verbal order read back to Wei PUENTE) (21:57 KKnebel R.N.) NPO (21:25 12/16/2016 EVETTEnebel R.N. verbal order read back to Wei PUENTE) (21:57 KKnebel R.N.) US Abdomen Limited (Yes) Urgent (22:38 12/16/2016 Wei PUENTE) (Ack 22:43 AMcQuoid ER Tech1) (1:00 AMcQuoid ER Tech1) Roof Tile Layer (Continuous) (22:40 12/16/2016 Wei PUENTE) (Ack 22:43 AMcQuoid ER Tech1) (23:31 KKnebel R.N.) Chest 2V Urgent (22:40 12/16/2016 Wei PUENTE) (Ack 22:43 Dennysoid ER Tech1) (22:55 EVETTEnebel R.N.) EKG - ER Stat (22:40 12/16/2016 Wei PUENTE) (Ack 22:43 AMcQuoid ER Tech1) (23:52 [facility]) Pulse oximeter (22:40 12/16/2016 Wei PUENTE) (Ack 22:43 AMcQuoid ER Tech1) (23:31 EVETTEnebel R.N.) CRP Urgent (22:42 12/16/2016 Wei PUENTE) (Ack 22:43 AMcQuoid ER Tech1) (22:44 AMcQuoid ER Tech1) ESR Urgent (22:42 12/16/2016 Wei PUENTE) (Ack 22:43 AMcQuoid ER Tech1) (22:44 AMcQuoid ER Tech1) PCT (Procalcitonin) Urgent (22:42 12/16/2016 Wei PUENTE) (Ack 22:43 AMcQuoid ER Tech1) (22:44 AMcQuoid ER Tech1) D-Dimer Urgent (22:43 12/16/2016 Wei PUENTE) (Ack 22:44 AMcQuoid ER Tech1) (22:44 AMcQuoid ER Tech1) MEDICATION ORDERS: GI Cocktail WHITE PO 50 mL (NOW) (22:39 12/16/2016 Wei PUENTE) (22:53 KKnebel R.N.) Carafate PO 20 ml (NOW) (00:46 12/17/2016 Wei PUENTE) (0:59 HSoule) Protonix PO 40 mg (NOW) (00:46 12/17/2016 Wei PUENTE) (0:59 HSoule) IV FLUIDS: IV Saline Lock (21:25 12/16/2016 Yury RRenanNRenan verbal order read back to Wei PUENTE) (22:20 Vijaya R.N.) Zofran IV 4 mg (NOW) (22:39 12/16/2016 Wei PUENTE) (22:53 Yury R.N.) Demerol IV 25 mg (NOW) (22:39 12/16/2016 Wei PUENTE) (22:54 Yury R.N.) Demerol IV 12.5 mg (NOW) (00:44 12/17/2016 Wei PUENTE) (0:59 HSoule) ORDER SHEET NOTES: [Electronically signed by Bentley Francisco R.N. (01:02 12/17/2016)] [Electronically signed by Samson James MD (21:52 12/17/2016)] [Electronically locked/signed by Bentley Francisco R.N. (01:02 12/17/2016)]
--- NOTE | 2016-12-17 00:49 | ED ORDER SUMMARY ---
..... Patient: SID SAPP OrderSheet [facility] VisitID: [id number] [place] [address] 31y, F Registration Date/Time: 12/16/2016 ORDER SHEET Weight: 150.5 kg (stated) Allergies: None GENERAL ORDERS: CBC w Diff Urgent (21:12/16/2016 KKnebel R.N. verbal order read back to Wei PUENTE) (Ack 21:32 AMcQuoid ER Tech1) (21:41 AMcQuoid ER Tech1) CMP Urgent (:12/16/2016 KKnebel R.N. verbal order read back to Wei PUENTE) (Ack 21:32 AMcQuoid ER Tech1) (21:41 AMcQuoid ER Tech1) UA-Culture if indicated Urgent (:12/16/2016 KKnebel R.N. verbal order read back to Wei PUENTE) (Ack 21:32 AMcQuoid ER Tech1) (21:41 AMcQuoid ER Tech1) PT with INR Urgent (21:12/16/2016 KKnebel R.N. verbal order read back to Wei PUENTE) (Ack 21:32 AMcQuoid ER Tech1) (21:41 AMcQuoid ER Tech1) Lipase Urgent (21:12/16/2016 KKnebel R.N. verbal order read back to Wei PUENTE) (Ack 21:32 AMcQuoid ER Tech1) (21:41 AMcQuoid ER Tech1) Amylase Urgent (21:12/16/2016 KKnebel R.N. verbal order read back to Wei PUENTE) (Ack 21:32 AMcQuoid ER Tech1) (21:41 AMcQuoid ER Tech1) Urine Urgent (:12/16/2016 KKnebel R.N. verbal order read back to Wei PUENTE) (Ack 21:32 AMcQuoid ER Tech1) (21:41 AMcQuoid ER Tech1) POC Glucose (21:12/16/2016 KKnebel R.N. verbal order read back to Wei PUENTE) (21:57 KKnebel R.N.) NPO (21:25 12/16/2016 EVETTEnebel R.N. verbal order read back to Wei PUENTE) (21:57 KKnebel R.N.) US Abdomen Limited (Yes) Urgent (22:38 12/16/2016 Wei PUENTE) (Ack 22:43 AMcQuoid ER Tech1) (1:00 AMcQuoid ER Tech1) Veterinary Technology Instructor (Continuous) (22:40 12/16/2016 Wei PUENTE) (Ack 22:43 AMcQuoid ER Tech1) (23:31 KKnebel R.N.) Chest 2V Urgent (22:40 12/16/2016 Wei PUENTE) (Ack 22:43 Dennysoid ER Tech1) (22:55 EVETTEnebel R.N.) EKG - ER Stat (22:40 12/16/2016 Wei UPENTE) (Ack 22:43 AMcQuoid ER Tech1) (23:52 [facility]) Pulse oximeter (22:40 12/16/2016 Wei PUENTE) (Ack 22:43 AMcQuoid ER Tech1) (23:31 EVETTEnebel R.N.) CRP Urgent (22:42 12/16/2016 Wei PUENTE) (Ack 22:43 AMcQuoid ER Tech1) (22:44 AMcQuoid ER Tech1) ESR Urgent (22:42 12/16/2016 Wei PUENTE) (Ack 22:43 AMcQuoid ER Tech1) (22:44 AMcQuoid ER Tech1) PCT (Procalcitonin) Urgent (22:42 12/16/2016 Wei PUENTE) (Ack 22:43 AMcQuoid ER Tech1) (22:44 AMcQuoid ER Tech1) D-Dimer Urgent (22:43 12/16/2016 Wei PUENTE) (Ack 22:44 AMcQuoid ER Tech1) (22:44 AMcQuoid ER Tech1) MEDICATION ORDERS: GI Cocktail WHITE PO 50 mL (NOW) (22:39 12/16/2016 Wei PUENTE) (22:53 KKnebel R.N.) Carafate PO 20 ml (NOW) (00:46 12/17/2016 Wei PUENTE) (0:59 HSoule) Protonix PO 40 mg (NOW) (00:46 12/17/2016 Wei PUENTE) (0:59 HSoule) IV FLUIDS: IV Saline Lock (21:25 12/16/2016 Yury RRenanNRenan verbal order read back to Wei PUENTE) (22:20 Vijaya R.N.) Zofran IV 4 mg (NOW) (22:39 12/16/2016 Wei PUENTE) (22:53 Yury R.N.) Demerol IV 25 mg (NOW) (22:39 12/16/2016 Wei PUENTE) (22:54 Yury R.N.) Demerol IV 12.5 mg (NOW) (00:44 12/17/2016 Wei PUENTE) (0:59 HSoule) ORDER SHEET NOTES: [Electronically signed by Bentley Francisco R.N. (01:02 12/17/2016)] [Electronically signed by Samson James MD (21:52 12/17/2016)] [Electronically locked/signed by Bentley Francisco R.N. (01:02 12/17/2016)]
--- NOTE | 2016-12-17 07:45 | DIAGNOSTIC IMAGING REPORT ---
PROCEDURE: US ABDOMEN ULTRASOUND-LIMITED INDICATION: RUQ PAIN TECHNIQUE: Hall scale and color Doppler sonographic images were obtained of the right upper quadrant. COMPARISON: None. FINDINGS: The liver is enlarged and mild to moderately heterogeneously hyperechoic in echo texture. Smooth margin. No mass or biliary dilatation. The gallbladder is contains two, dependently layering shadowing stones measuring about 0.7 and 1.5 cm. Normal wall thickness at 2 mm. No pericholecystic fluid or Campos' s sign. The common duct is normal size at 5.7 mm. The visible portion of the inferior vena cava, abdominal aorta, and portal vein appear normal with appropriate direction of flow in the portal vein. The right kidney is normal measuring 13.2 cm. No free fluid in the right upper quadrant. IMPRESSION: 1. Cholelithiasis without sonographic evidence of acute cholecystitis. 2. Hepatomegaly and hepatic steatosis.
--- NOTE | 2016-12-17 21:52 | ED DISCHARGE INSTRUCTIONS ---
Patient: SID SAPP General Instructions [facility] VisitID: [id number] [place] [address] 31y, F Registration Date/Time: 12/16/2016 Gastroesophageal reflux disease with esophagitis. Gallstones. INSTRUCTIONS Take clear liquids only (frequent sips) for the next 6 hours until better. Advance diet as tolerated. Avoid alcohol and NSAIDS. Examples of NSAIDS include aspirin, ibuprofen (Advil) and naproxen (Aleve). Avoid fatty, fried/greasy and spicy foods. Warnings: Further evaluation is necessary. SEDATIVE MEDICATION: You were given sedative medication during your visit. Do not drive or operate dangerous machinery. GENERAL WARNINGS: Return or contact your physician immediately if your condition worsens or changes unexpectedly, if not improving as expected, or if other problems arise. Your Current Medications: CONTINUE TAKING THE FOLLOWING MEDICATIONS: Januvia Oral. Lisinopril Oral. MetFORMIN HCl Oral. Omeprazole Oral. Prescription Medications: Zofran (orally disintegrating tablets) 4 mg: take 1 orally every 4 hours as needed for nausea. Dispense ten (10). No refill. Carafate 1 gm tablets: take 1 orally four times daily (1 hour before meals and at bedtime). Dispense sixty (60). No refills. Substitution is permissible. Prilosec 40 mg capsules: take 1 capsule orally every day for 10 days. Dispense ten (10). No refill. Substitution is permissible. Percocet 5 mg/325 mg: take 1-2 tablets orally every 4 hours as needed for pain. Dispense twelve (12). No refill. Substitution is permissible. Follow-up: Follow up with your doctor in two days. Call for an appointment. Understanding of the discharge instructions verbalized by patient. ADDITIONAL INFORMATION GERD (Adult) The esophagus is a tube that carries food from the mouth to the stomach. A valve at the lower end of the esophagus prevents stomach acid from flowing upward. If this valve does not work properly, acid from the stomach enters the esophagus. If this occurs over and over, the acid will injure the lining of the esophagus. This condition is called GERD (gastroesophageal reflux disease) or acid reflux. When stomach acid flows upward into the esophagus, it causes burning, pressure or sharp pain in the upper abdomen or mid to lower chest. The pain can spread to the neck, back, or shoulder, similar to heart pain (angina). There may be belching, an acid taste in the back of the throat, chronic cough, or sore throat or hoarseness. GERD symptoms often occur during the day after a big meal, but it can also occur at night when lying down. Smoking,as well as drinking alcohol, increases the risk of GERD. GERD is a chronic condition. Once it begins, it is often lifelong. Treatment includes changes in eating habits and the use of acid nisreen medications to decrease the amount of acid in the stomach. Symptoms often improve with treatment, but if treatment is stopped, the symptoms usually return after a few months. So most persons with GERD will need to continue treatment. Home Care: Take the prescribed acid nisreen medication for the full course of treatment even if you begin to feel better sooner. This medication can take up to several days to fully control your symptoms. If you cant afford the prescribed medication, you can try tphy-sub-zabnmfp acid blockers, such as Pepcid AC, Tagamet, Zantac, or Aciphex. If these do not relieve your symptoms, a stronger acid-nisreen can be tried, such as Prilosec OTC. You can use antacids, such as Tums, Rolaids, Mylanta, or Maalox, for pain. This will be useful the first few days after starting acid blockers when the blockers havent started working yet. Follow the directions on the label. Liquid antacids may work better than tablets. Note that antacids can interfere with absorption of certain medications. Specifically, do not take Tagamet (cimetidine), Zantac (ranitidine), or Carafate (sucralfate) within 1 hour of taking an antacid. Talk with your pharmacist if you have any questions. Limit or avoid fatty, fried, and spicy foods, as well as coffee, chocolate, mint, and foods with high acid content such as tomatoes and citrus fruit and juices (orange, grapefruit, lemon). Avoid alcohol and smoking. Dont eat large meals, especially at night. Frequent, smaller meals are best. Do not lie down right after eating. And dont eat anything 3 hours before going to bed. If you are overweight, losing weight will reduce symptoms. Women should not wear corsets or girdles because this increases pressure on the stomach and worsens reflux. If your symptoms occur during sleep, use a foam wedge to elevate your upper body (not just your head.) Or, place 4" blocks under the head of your bed. Follow Up with your doctor or as advised by our staff. Further testing may be needed. If you do not begin to improve over the next 4 days, contact your doctor. If you had an x-ray, CT scan, or ECG (electrocardiogram), it will be reviewed by a specialist. Youll be notified of any new findings that affect your care. Get Prompt Medical Attention if any of the following occur: Stomach pain gets worse or moves to the lower right abdomen (appendix area) Chest pain appears or gets worse, or spreads to the back, neck, shoulder, or arm Frequent vomiting (cant keep down liquids) Blood in the stool or vomit (red or black in color) Feeling weak or dizzy, fainting, or trouble breathing Fever of 100.4F (38C) or higher, or as directed by your healthcare provider Clear Liquid Diet Clear liquids are any liquid that you can see through as well as those that are very easy to digest. This is used while the body is recovering from irritation or infection of the stomach or intestinal tract. It may also be used before special procedures or surgery. This diet is to be used no more than three days. You may include the following items. Adults Adults should drink a total of 23 quarts of liquid per day. It may be easier to drink small frequent servings rather than a few large ones. Liquids can include: Fruit juices.Strained orange juice or lemonade (no pulp), apple, grape and cranberry juice, clear fruit drinks, sports drinks Beverages.Sport drinks, sodas, mineral water (plain or flavored), tea, black coffee, liquid gelatin (add twice the recommended amount of water) Soups.Clear broth, consomm, bouillon Desserts.Plain gelatin, popsicles, fruit juice bars Children Over 2 years old The following liquids are acceptable for children over age 2: Fruit juices.Strained orange juice or lemonade (no pulp), apple, grape and cranberry juice, clear fruit drinks Beverages. Sports drinks, sodas, mineral water (plain or flavored), tea, liquid gelatin (add twice the recommended amount of water) Soups. Clear broth, consomm, bouillon Desserts. Plain gelatin, popsicles, fruit juice bars Children under 2 years old Oral rehydration fluids such are available at drug stores and most grocery stores without a prescription. [place] Diet A bland diet is used for patients with an upset stomach. It consists of foods that are mild and easy to digest. It is better to eat small frequent meals rather than three large meals a day. BEVERAGES OK: Fruit juices, non-caffeinated teas and coffee, non-carbonated donahue AVOID: Carbonated beverage, caffeinated tea and coffee, all alcoholic beverages BREAD OK: Refined white, wheat or rye bread, selma or soda crackers, Ingrid toast, plain rolls, bagels AVOID: Whole-grain bread CEREAL OK: Refined cereals: cooked or ready to eat AVOID: Whole grain cereals and granola, or those containing bran, seeds or nuts DESSERTS OK: Peanut butter and all others except those to "avoid" AVOID: Chocolate, cocoa, coconut, popcorn, nuts, seeds, jam, marmalade FRUITS OK: Canned, cooked, frozen or fresh fruits without seeds or tough skin AVOID: Olives, skin and seeds of fruit MEATS OK: All fresh or preserved meat, fish and fowl AVOID: Any that are prepared with those spices to "avoid" CHEESE & EGGS OK: Eggs, cottage cheese, cream cheese, other cheeses AVOID: All cheeses made with those spices to "avoid" POTATOES & PASTA OK: Potato, rice, macaroni, noodles, spaghetti AVOID: None SOUPS OK: All soups without heavy seasoning AVOID: Soups made with those spices to "avoid" VEGETABLES OK: Canned, cooked, fresh or frozen mildly flavored vegetables without seeds, skins or coarse fiber AVOID: Vegetables prepared with those spices to "avoid"; skin and seeds of vegetables and those with coarse fiber SPICES OK: Salt, lemon and [place] juice, vinegar, all extracts, loretta, cinnamon, thyme, mace, allspice, paprika AVOID: [place] powder, cloves, pepper, seed spices, garlic, gravy pickles, highly seasoned salad dressings Ondansetron Oral disintegrating tablet What is this medicine? ONDANSETRON (on AJ se ian) is used to treat nausea and vomiting caused by chemotherapy. It is also used to prevent or treat nausea and vomiting after surgery. How should I use this medicine? These tablets are made to dissolve in the mouth. Do not try to push the tablet through the foil backing. With dry hands, peel away the foil backing and gently remove the tablet. Place the tablet in the mouth and allow it to dissolve, then swallow. While you may take these tablets with water, it is not necessary to do so. Talk to your music industry internship regarding the use of this medicine in children. Special care may be needed. What side effects may I notice from receiving this medicine? Side effects that you should report to your doctor or health transition of care specialist as soon as possible: allergic reactions like skin rash, itching or hives, swelling of the face, lips, or tongue breathing problems dizziness fast or irregular heartbeat feeling faint or lightheaded, falls fever and chills swelling of the hands and feet tightness in the chest Side effects that usually do not require medical attention (report to your doctor or health transition of care specialist if they continue or are bothersome): constipation or diarrhea headache What may interact with this medicine? Do not take this medicine with any of the following medications: -apomorphine -cisapride -dofetilide -dronedarone -pimozide -thioridazine -ziprasidone This medicine may also interact with the following medications: -carbamazepine -phenytoin -rifampicin -tramadol -other medicines that prolong the QT interval (cause an abnormal heart rhythm) What if I miss a dose? If you miss a dose, take it as soon as you can. If it is almost time for your next dose, take only that dose. Do not take double or extra doses. Where should I keep my medicine? Keep out of the reach of children. Store between 2 and 30 degrees C (36 and 86 degrees F). Throw away any unused medicine after the expiration date. What should I tell my health care provider before I take this medicine? They need to know if you have any of these conditions: heart disease history of irregular heartbeat liver disease low levels of magnesium or potassium in the blood an unusual or allergic reaction to ondansetron, granisetron, other medicines, foods, dyes, or preservatives or trying to get breast-feeding What should I watch for while using this medicine? Check with your doctor or health transition of care specialist as soon as you can if you have any sign of an allergic reaction. Omeprazole Magnesium Gastro-resistant tablet What is this medicine? OMEPRAZOLE (oh ME pray zol) prevents the production of acid in the stomach. It is used to treat the symptoms of heartburn. You can buy this medicine without a prescription. This product is not for long-term use, unless otherwise directed by your doctor or health transition of care specialist. How should I use this medicine? Take this medicine by mouth. Follow the directions on the product label. If you are taking this medicine without a prescription, take one tablet every day. Do not use for longer than 14 days or repeat a course of treatment more often than every 4 months unless directed by a doctor or healthcare professional. Take your dose at regular intervals every 24 hours. Swallow the tablet whole with a drink of water. Do not crush, break or chew. This medicine works best if taken on an empty stomach 30 minutes before breakfast. If you are using this medicine with the prescription of your doctor or healthcare professional, follow the directions you were given. Do not take your medicine more often than directed. Talk to your music industry internship regarding the use of this medicine in children. Special care may be needed. What side effects may I notice from receiving this medicine? Side effects that you should report to your doctor or health transition of care specialist as soon as possible: allergic reactions like skin rash, itching or hives, swelling of the face, lips, or tongue bone, muscle or joint pain breathing problems chest pain or chest tightness dark yellow or brown urine diarrhea dizziness fast, irregular heartbeat feeling faint or lightheaded fever or sore throat muscle spasm palpitations redness, blistering, peeling or loosening of the skin, including inside the mouth seizures tremors unusual bleeding or bruising unusually weak or tired yellowing of the eyes or skin Side effects that usually do not require medical attention (Report these to your doctor or health transition of care specialist if they continue or are bothersome.): constipation dry mouth headache loose stools nausea What may interact with this medicine? Do not take this medicine with any of the following medications: atazanavir clopidogrel nelfinavir This medicine may also interact with the following medications: ampicillin certain medicines for anxiety or sleep certain medicines that treat or prevent blood clots like warfarin cyclosporine diazepam digoxin disulfiram iron salts phenytoin prescription medicine for fungal or yeast infection like itraconazole, ketoconazole, voriconazole saquinavir tacrolimus What if I miss a dose? If you miss a dose, take it as soon as you can. If it is almost time for your next dose, take only that dose. Do not take double or extra doses. Where should I keep my medicine? Keep out of the reach of children. Store at room temperature between 20 and 25 degrees C (68 and 77 degrees F). Protect from light and moisture. Throw away any unused medicine after the expiration date. What should I tell my health care provider before I take this medicine? They need to know if you have any of these conditions: black or bloody stools chest pain difficulty swallowing have had heartburn for over 3 months have heartburn with dizziness, lightheadedness or sweating liver disease stomach pain unexplained weight loss vomiting with blood wheezing an unusual or allergic reaction to omeprazole, other medicines, foods, dyes, or preservatives or trying to get breast-feeding What should I watch for while using this medicine? It can take several days before your heartburn gets better. Check with your doctor or health transition of care specialist if your condition does not start to get better, or if it gets worse. Do not treat diarrhea with over the counter products. Contact your doctor if you have diarrhea that lasts more than 2 days or if it is severe and watery. Do not treat yourself for heartburn with this medicine for more than 14 days in a row. You should only use this medicine for a 2-week treatment period once every 4 months. If your symptoms return shortly after your therapy is complete, or within the 4 month time frame, call your doctor or health transition of care specialist. Oxycodone Hydrochloride, Acetaminophen Oral tablet What is this medicine? ACETAMINOPHEN; OXYCODONE (a set a TASHA justus fen; ox i KOE done) is a pain reliever. It is used to treat mild to moderate pain. How should I use this medicine? Take this medicine by mouth with a full glass of water. Follow the directions on the prescription label. Take your medicine at regular intervals. Do not take your medicine more often than directed. Talk to your music industry internship regarding the use of this medicine in children. Special care may be needed. Patients over 65 years old may have a stronger reaction and need a smaller dose. What side effects may I notice from receiving this medicine? Side effects that you should report to your doctor or health transition of care specialist as soon as possible: allergic reactions like skin rash, itching or hives, swelling of the face, lips, or tongue breathing difficulties, wheezing confusion light headedness or fainting spells severe stomach pain yellowing of the skin or the whites of the eyes Side effects that usually do not require medical attention (report to your doctor or health transition of care specialist if they continue or are bothersome): dizziness drowsiness nausea vomiting What may interact with this medicine? alcohol antihistamines barbiturates like amobarbital, butalbital, butabarbital, methohexital, pentobarbital, phenobarbital, thiopental, and secobarbital benztropine drugs for bladder problems like solifenacin, trospium, oxybutynin, tolterodine, hyoscyamine, and methscopolamine drugs for breathing problems like ipratropium and tiotropium drugs for certain stomach or intestine problems like propantheline, homatropine methylbromide, glycopyrrolate, atropine, belladonna, and dicyclomine general anesthetics like etomidate, ketamine, nitrous oxide, propofol, desflurane, enflurane, halothane, isoflurane, and sevoflurane medicines for depression, anxiety, or psychotic disturbances medicines for sleep muscle relaxants naltrexone narcotic medicines (opiates) for pain phenothiazines like perphenazine, thioridazine, chlorpromazine, mesoridazine, fluphenazine, prochlorperazine, promazine, and trifluoperazine scopolamine tramadol trihexyphenidyl What if I miss a dose? If you miss a dose, take it as soon as you can. If it is almost time for your next dose, take only that dose. Do not take double or extra doses. Where should I keep my medicine? Keep out of the reach of children. This medicine can be abused. Keep your medicine in a safe place to protect it from theft. Do not share this medicine with anyone. Selling or giving away this medicine is dangerous and against the law. Store at room temperature between 20 and 25 degrees C (68 and 77 degrees F). Keep container tightly closed. Protect from light. This medicine may cause accidental overdose and if it is taken by other adults, children, or pets. Flush any unused medicine down the toilet to reduce the chance of harm. Do not use the medicine after the expiration date. What should I tell my health care provider before I take this medicine? They need to know if you have any of these conditions: brain tumor Crohn's disease, inflammatory bowel disease, or ulcerative colitis drink more than 3 alcohol containing drinks per day drug abuse or addiction head injury heart or circulation problems kidney disease or problems going to the bathroom liver disease lung disease, asthma, or breathing problems an unusual or allergic reaction to acetaminophen, oxycodone, other opioid analgesics, other medicines, foods, dyes, or preservatives or trying to get breast-feeding What should I watch for while using this medicine? Tell your doctor or health transition of care specialist if your pain does not go away, if it gets worse, or if you have new or a different type of pain. You may develop tolerance to the medicine. Tolerance means that you will need a higher dose of the medication for pain relief. Tolerance is normal and is expected if you take this medicine for a long time. Do not suddenly stop taking your medicine because you may develop a severe reaction. Your body becomes used to the medicine. This does NOT mean you are addicted. Addiction is a behavior related to getting and using a drug for a non-medical reason. If you have pain, you have a medical reason to take pain medicine. Your doctor will tell you how much medicine to take. If your doctor wants you to stop the medicine, the dose will be slowly lowered over time to avoid any side effects. You may get drowsy or dizzy. Do not drive, use machinery, or do anything that needs mental alertness until you know how this medicine affects you. Do not stand or sit up quickly, especially if you are an older patient. This reduces the risk of dizzy or fainting spells. Alcohol may interfere with the effect of this medicine. Avoid alcoholic drinks. There are different types of narcotic medicines (opiates) for pain. If you take more than one type at the same time, you may have more side effects. Give your health care provider a list of all medicines you use. Your doctor will tell you how much medicine to take. Do not take more medicine than directed. Call emergency for help if you have problems breathing. The medicine will cause constipation. Try to have a bowel movement at least every 2 to 3 days. If you do not have a bowel movement for 3 days, call your doctor or health transition of care specialist. Do not take Tylenol (acetaminophen) or medicines that have acetaminophen with this medicine. Too much acetaminophen can be very dangerous. Many nonprescription medicines contain acetaminophen. Always read the labels carefully to avoid taking more acetaminophen. You have been given the following additional information: GERD (Adult) Diet, Clear Liquid Diet, [place] (Adult) Ondansetron Oral disintegrating tablet Omeprazole Magnesium Gastro-resistant tablet Oxycodone Hydrochloride, Acetaminophen Oral tablet (Electronically signed by Samson James MD 12/17/2016 21:52)
--- NOTE | 2016-12-17 21:52 | ED MED RECONCILIATION SUMMARY ---
Patient: SID SAPP Medication Reconciliation Report [facility] VisitID: [id number] [place] [address] 31y, F Registration Date/Time: 12/16/2016 Weight: 150.5 kg Height/Length: 67 in. BMI: 52.0 ALLERGIES: None The patient's Home Medications are listed below: CONTINUE TAKING THE FOLLOWING MEDICATIONS: Januvia Oral Lisinopril Oral MetFORMIN HCl Oral Omeprazole Oral The source(s) of the original Home Medication information: Not obtained. The following Medications were given to the patient in the Emergency Department: GI COCKTAIL WHITE [PO] PO, administered: 12/16/2016 10:53:00 PM Zofran [IVP] IVP 4 mg, administered: 12/16/2016 10:53:00 PM Demerol [IVP] IVP 25 mg, administered: 12/16/2016 10:54:00 PM Demerol [IVP] IVP 12.5 mg, administered: 12/17/2016 12:54:00 AM Carafate [PO] PO 2 gm, administered: 12/17/2016 12:54:00 AM Protonix [PO] PO 40 mg, administered: 12/17/2016 12:54:00 AM The following Medications were prescribed to the patient: Zofran (orally disintegrating tablets) 4 mg: take 1 orally every 4 hours as needed for nausea. Dispense ten (10). No refill. -- Samson James MD Carafate 1 gm tablets: take 1 orally four times daily (1 hour before meals and at bedtime). Dispense sixty (60). No refills. Substitution is permissible. -- Samson James MD Prilosec 40 mg capsules: take 1 capsule orally every day for 10 days. Dispense ten (10). No refill. Substitution is permissible. -- Samson James MD Percocet 5 mg/325 mg: take 1-2 tablets orally every 4 hours as needed for pain. Dispense twelve (12). No refill. Substitution is permissible. -- Samson James MD
--- NOTE | 2016-12-17 21:52 | ED MAR SUMMARY ---
..... Medication Administration Record [facility] [address] [place] [address] Patient: SID SAPP Visit ID: [id number] 31y, F Weight: 150.5 kg Height/Length: 67 in BMI: 52 ALLERGIES: None Given 22:12/16/2016 Francy Dillon RAinsley Medication Administered: GI COCKTAIL WHITE [PO] (SIMETHICONE), Dose: Oral Suspension PO. Medication Ordered: GI Cocktail WHITE PO 50 mL (NOW). Given 22:12/16/2016 Francy Dillon RAinsley Medication Administered: ZOFRAN [IVP] (ONDANSETRON HCL), Dose: 4 mg IVP over 2 minute(s), Site: #1 left hand. Medication Ordered: Zofran IV 4 mg (NOW). Given :12/16/2016 Francy Dillon RAinsley Medication Administered: DEMEROL [IVP] (MEPERIDINE HCL), Dose: 25 mg IVP over 2 minute(s), Site: #1 left hand. Medication Ordered: Demerol IV 25 mg (NOW). Given :12/17/2016 Ne Marin, Medication Administered: DEMEROL [IVP] (MEPERIDINE HCL), Dose: 12.5 mg IVP over 1 minute(s), Site: #1. Medication Ordered: Demerol IV 12.5 mg (NOW). Given :12/17/2016 Ne Marin, Medication Administered: CARAFATE [PO] (SUCRALFATE), Dose: 2 gm Oral Suspension PO. Medication Ordered: Carafate PO 20 ml (NOW). Given :12/17/2016 Ne Marin, Medication Administered: PROTONIX [PO] (PANTOPRAZOLE SODIUM), Dose: 40 mg Tablets PO. Medication Ordered: Protonix PO 40 mg (NOW).
--- NOTE | 2016-12-17 21:52 | ED MED RECONCILIATION SUMMARY ---
Patient: SID SAPP Medication Reconciliation Report [facility] VisitID: [id number] [place] [address] 31y, F Registration Date/Time: 12/16/2016 Weight: 150.5 kg Height/Length: 67 in. BMI: 52.0 ALLERGIES: None The patient's Home Medications are listed below: CONTINUE TAKING THE FOLLOWING MEDICATIONS: Januvia Oral Lisinopril Oral MetFORMIN HCl Oral Omeprazole Oral The source(s) of the original Home Medication information: Not obtained. The following Medications were given to the patient in the Emergency Department: GI COCKTAIL WHITE [PO] PO, administered: 12/16/2016 10:53:00 PM Zofran [IVP] IVP 4 mg, administered: 12/16/2016 10:53:00 PM Demerol [IVP] IVP 25 mg, administered: 12/16/2016 10:54:00 PM Demerol [IVP] IVP 12.5 mg, administered: 12/17/2016 12:54:00 AM Carafate [PO] PO 2 gm, administered: 12/17/2016 12:54:00 AM Protonix [PO] PO 40 mg, administered: 12/17/2016 12:54:00 AM The following Medications were prescribed to the patient: Zofran (orally disintegrating tablets) 4 mg: take 1 orally every 4 hours as needed for nausea. Dispense ten (10). No refill. -- Samson James MD Carafate 1 gm tablets: take 1 orally four times daily (1 hour before meals and at bedtime). Dispense sixty (60). No refills. Substitution is permissible. -- Samson James MD Prilosec 40 mg capsules: take 1 capsule orally every day for 10 days. Dispense ten (10). No refill. Substitution is permissible. -- Samson James MD Percocet 5 mg/325 mg: take 1-2 tablets orally every 4 hours as needed for pain. Dispense twelve (12). No refill. Substitution is permissible. -- Samson James MD
--- NOTE | 2016-12-17 21:52 | ED MAR SUMMARY ---
..... Medication Administration Record [facility] [address] [facility] [place] [address] Patient: SID SAPP Visit ID: [id number] 31y, F Weight: 150.5 kg Height/Length: 67 in BMI: 52 ALLERGIES: None Given 22:12/16/2016 Francy Dillon RAinsley Medication Administered: GI COCKTAIL WHITE [PO] (SIMETHICONE), Dose: Oral Suspension PO. Medication Ordered: GI Cocktail WHITE PO 50 mL (NOW). Given 22:12/16/2016 Francy Dillon RAinsley Medication Administered: ZOFRAN [IVP] (ONDANSETRON HCL), Dose: 4 mg IVP over 2 minute(s), Site: #1 left hand. Medication Ordered: Zofran IV 4 mg (NOW). Given :12/16/2016 Francy Dillon RAinsley Medication Administered: DEMEROL [IVP] (MEPERIDINE HCL), Dose: 25 mg IVP over 2 minute(s), Site: #1 left hand. Medication Ordered: Demerol IV 25 mg (NOW). Given :12/17/2016 Ne Marni, Medication Administered: DEMEROL [IVP] (MEPERIDINE HCL), Dose: 12.5 mg IVP over 1 minute(s), Site: #1. Medication Ordered: Demerol IV 12.5 mg (NOW). Given :12/17/2016 Ne Marin, Medication Administered: CARAFATE [PO] (SUCRALFATE), Dose: 2 gm Oral Suspension PO. Medication Ordered: Carafate PO 20 ml (NOW). Given :12/17/2016 Ne Marin, Medication Administered: PROTONIX [PO] (PANTOPRAZOLE SODIUM), Dose: 40 mg Tablets PO. Medication Ordered: Protonix PO 40 mg (NOW).
== END 2016-12-17 01:00 | disposition home or self-care (01) ==
LOC: ED SRH 21:01
DX: K21.0 Gastro-esophageal reflux disease with esophagitis (principal); K80.20 Calculus of gallbladder without cholecystitis without obstruction; I10 Essential (primary) hypertension; E11.9 Type 2 diabetes mellitus without complications; Z79.899 Other long term (current) drug therapy; Z79.84 Long term (current) use of oral hypoglycemic drugs; F17.210 Nicotine dependence, cigarettes, uncomplicated
CPT/HCPCS: 90004; 90074; 90100; 91556; 91585; 92235; 92530; 93004; 93070; 94060; 95059; 95150